=== PATIENT | male | born 1960 | race Caucasian/White ===

== ENCOUNTER → 2017-07-26 | Outpatient (CLI) | payer OTHER ==
--- NOTE | 2017-07-26 11:46 | MRI ---
MRI left knee without contrast Indicate: Posterior left knee pain Technique: Multiplanar, multi sequence imaging of the left knee without IV contrast administration. Findings: The extensor mechanism is intact. There is mild tendinopathy/enthesopathic change of the di stal quadriceps tendon and proximal patellar tendons. There is very mild non localizing edema within the prepatellar soft tissues. The patella demonstrates moderate chondromalacia of the lateral patella r articular cartilage with mild thickening. Large surface osteophytes are noted within the superior p atella along the median and lateral patellar and femoral trochlea. There is no subchondral bone marro w edema or full thickness chondral loss. The patella remains well positioned within the femoral troch elena. Medial and lateral retinacular complexes are intact. There is a moderate-sized joint effusion wi th very mild synovitis. No popliteal fossa cyst. There is a small ganglion cyst surrounding the myote ndinous junction of the popliteus tendon without tear or abnormal signal within the popliteus. Pes an serine tendons are intact. The medial femorotibial compartment demonstrates full thickness cartilage loss with subchondral bone marrow edema. Large surface osteophytes are noted. The lateral femorotibial compartment demonstrates mild chondromalacia and chondral thinning without subchondral bone marrow signal abnormality. A moder ate-sized surface osteophytes are also noted. There is thinning of the ACL suggesting chronic sprain/tear however there is no full thickness ACL te ar. PCL is intact. Collateral ligaments are intact. The biceps femoris and iliotibial band are normal . The medial meniscus demonstrates macerated tear of the posterior horn and root extending into the c entral free edge of the meniscal body. There is mild extrusion of the meniscal body into the medial g utter. The anterior horn demonstrates degenerative signal without tear. The lateral meniscus demonstr ates no evidence of tear. There is a moderate medial and small lateral gastrocnemius ganglion cyst no nilda at their origins. 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 There is full thickness tear of the posterior dario t with mild extrusion of the meniscal body into the medial gutter. 2. Moderate lateral femorotibial and patellofemoral compartment osteoarthrosis. 3. Moderate-sized joint effusion with synovitis. 4.Moderate-sized ganglion cyst with osteochondral body present surrounding the myotendinous junction of the popliteus tendon. 5. Mild tendinopathy/enthesopathic change of the distal quadriceps and proximal patellar tendons. Reported By:
== END | disposition home or self-care (01) ==
LOC: RAD 09:57
PROVIDERS: ATTEND Internal Medicine
DX: M25.562 Pain in left knee (principal); M17.12 Unilateral primary osteoarthritis, left knee; S83.242A Other tear of medial meniscus, current injury, left knee, initial encounter; X58.XXXA Exposure to other specified factors, initial encounter; M65.862 Other synovitis and tenosynovitis, left lower leg; M67.462 Ganglion, left knee
CPT/HCPCS: 73721